=== PATIENT | female | born 1960 ===

== ENCOUNTER 2018-06-30 14:56 | Emergency (ER) | payer SELFPAY ==
[2018-06-30 15:11] VITALS: RESP 18
[2018-06-30 16:45] VITALS: BP 127/69; PULSE 78; TEMP 97.9; O2SAT 99
--- NOTE | 2018-06-30 17:29 | RAD ---
Date of service: 06/30/2018 PROCEDURE: Left Knee Radiographs. HISTORY: Pain. COMPARISON: None. TECHNIQUE: 2 views obtained. FINDINGS: BONES: No acute fracture. JOINTS: Unremarkable. JOINT EFFUSION: Small suprapatellar joint effusion. OTHER FINDINGS: None. IMPRESSION: Small suprapatellar joint effusion without demonstrated fracture or dislocation.
--- NOTE | 2018-07-02 16:07 | ED PDOC ---
Arrival/HPI - General Chief Complaint: Lower Extremity Problem/Injury Time Seen by Provider: 06/30/18 14:58 Historian: Patient, Family - History of Present Illness Narrative History of Present Illness (Text): 07/01/18 58 yo female that presented to the ED c/o left knee pain since yesterday. She states that she went to sleep on her left side and she work up with some mild swelling to her left knee with pain. She denies any problems walking except for mild pain. No fever, chills or bodyaches. No numbness or weakness. Past Medical History - Provider Review Nursing Documentation Reviewed: Yes - Infectious Disease Hx of Infectious Diseases: None - Reproductive Menopause: Yes - Musculoskeletal/Rheumatological Hx Arthritis: Yes (arms, back) - Psychiatric Hx Substance Use: No - Anesthesia Hx Anesthesia: No Hx Anesthesia Reactions: No Hx Malignant Hyperthermia: No Family/Social History - Physician Review Nursing Documentation Reviewed: Yes Family/Social History: No Known Family HX Smoking Status: Never Smoked Hx Alcohol Use: No Hx Substance Use: No Allergies/Home Meds Allergies/Adverse Reactions: Allergies No Known Allergies Allergy (Verified 06/30/18 15:11) Review of Systems - Review of Systems Constitutional: Normal Eyes: Normal ENT: Normal Respiratory: Normal Cardiovascular: Normal Gastrointestinal: Normal Genitourinary Female: Normal Musculoskeletal: Other (Left knee pain) Skin: Normal Neurological: Normal Endocrine: Normal Hemo/Lymphatic: Normal Psychiatric: Normal Physical Exam Vital Signs Reviewed: Yes Vital Signs Temp Pulse Resp BP Pulse Ox 06/30/18 16:44 97.9 F 78 18 127/69 99 06/30/18 15:07 98.5 F 57 L 18 122/78 98 Temperature: Afebrile Blood Pressure: Normal Pulse: Bradycardic Respiratory Rate: Normal Appearance: Positive for: Well-Appearing, Non-Toxic, Comfortable Pain Distress: None Mental Status: Positive for: Alert and Oriented X 3 - Systems Exam Head: Present: Atraumatic, Normocephalic Pupils: Present: PERRL Extroacular Muscles: Present: EOMI Neck: Present: Normal Range of Motion. No: MIDLINE TENDERNESS Back: Present: Normal Inspection. No: Midline Tenderness Upper Extremity: Present: Normal Inspection, Normal ROM, NORMAL PULSES, Neurovascularly Intact Lower Extremity: Present: Normal Inspection, NORMAL PULSES, Normal ROM, Tenderness (left knee), Swelling (mild swelling), Neurovascularly Intact. No: Deformity Neurological: Present: GCS=15, CN II-XII Intact, Speech Normal, Motor Func Grossly Intact, Normal Sensory Function, Gait Normal Psychiatric: Present: Alert, Oriented x 3, Normal Insight, Normal Concentration Medical Decision Making ED Course and Treatment: 07/02/18 16:08 58 yo female with left knee pain r/o arthritis/bursitis, less likely trauma -- XRay normal -- Improved with Motrin PO -- She will f/u with her PMD this week. Advised to also f/u with Orthopedics and was given a referral with Dr. Lara. - RAD Interpretation Radiology Orders: 06/30/18 15:37 KNEE LEFT 2 VIEWS (AP & LAT) [RAD] Stat - Medication Orders Current Medication Orders: Discontinued Medications Ibuprofen (Motrin Tab) 600 mg PO STAT STA Stop: 06/30/18 15:39 Last Admin: 06/30/18 15:58 Dose: 600 mg MAR Pain/Vitals Document 06/30/18 15:58 EQ (Rec: 06/30/18 15:59 EQ [id number]) Pain Reassessment Is This A Pain ReAssessment? No Sleep Is patient sleeping during reassessment? No Presence of Pain Presence of Pain Yes Disposition/Present on Arrival - Present on Arrival Any Indicators Present on Arrival: No History of DVT/PE: No History of Uncontrolled Diabetes: No Urinary Catheter: No History of Decub. Ulcer: No History Surgical Site Infection Following: None - Disposition Have Diagnosis and Disposition been Completed?: Yes Diagnosis: Knee pain Disposition: HOME/ ROUTINE Disposition Time: 16:52 Patient Plan: Discharge Condition: GOOD Discharge Instructions (ExitCare): Knee Pain (DC) Additional Instructions: ROME EMANUEL, thank you for letting us take care of you today. Your provider was Pascual Wallace DO and you were treated for Knee Pain. The emergency medical care you received today was directed at your acute symptoms. If you were prescribed any medication, please fill it and take as directed. It may take several days for your symptoms to resolve. Return to the Emergency Department if your symptoms worsen, do not improve, or if you have any other problems. Please contact your doctor or call one of the physicians/clinics you have been referred to that are listed on the Patient Visit Information form that is included in your discharge packet. Bring any paperwork you were given at [facility] with you along with any medications you are taking to your follow up visit. Our treatment cannot replace ongoing medical care by a primary care provider outside of the emergency department. Thank you for allowing the [facility] team to be part of your care today. If you had an X-Ray or CT scan: A Radiologist will review the ED reading if any change in treatment is needed we will contact you. If you had a blood, urine, or wound culture: It will take several days for the results, if any change in treatment is needed we will contact you. If you had an STI test: It will take 48 hours for the results. Please call after 1 week if you have not heard back. Prescriptions: Ibuprofen [Motrin] 600 mg PO Q6 PRN #30 tab PRN Reason: Pain, Moderate (4-7) Referrals: Bry Mir, DO [Staff Provider] - Follow up with primary Forms: [employer] (Italian), WORK NOTE
== END 2018-06-30 16:52 | disposition home or self-care (01) ==
LOC: ED 14:56
DX: M25.562 Pain in left knee (principal)